=== PATIENT | male | born 1950 | race Two or more races ===

== ENCOUNTER → 2017-01-17 | Outpatient (CLI) | payer BC ==
[~2017-01-17] MED LIST: AMIO400T4 PO; ASPI-621 PO; ATOR40TA PO; CLOP75TA52 PO; DOCU-131 PO; ENAL2.5T32 PO; FURO-93 PO; LORA2TAB PO; METO25TA35 PO/NG; NAPR500T4 PO; OMNIPAQUE 350 MG/ML, 150 ML BOTTLE ONE; OXYC10TA6 PO; PANT40TA5 PO; POTA10TA5 PO; TADA20TA PO; ZOLP10TA5 PO
== END | disposition home or self-care (01) ==
LOC: CFH 12:02
PROVIDERS: ATTEND Physician Assistant Surgical
DX: N28.1 Cyst of kidney, acquired (principal)
CPT/HCPCS: 74178; Q9967

== ENCOUNTER → 2019-10-19 | Outpatient (CLI) | payer MEDICARE ==
[~2019-10-19] MED LIST changes: -AMIO400T4 PO; +AMIO400T5 PO; -ASPI-621 PO; +ASPI81TA45 PO; +NAPR-685 PO; -NAPR500T4 PO; -OMNIPAQUE 350 MG/ML, 150 ML BOTTLE ONE; +REGADENOSON 0.4 MG/5 ML SYRINGE ONE
== END | disposition home or self-care (01) ==
LOC: CFH 07:52
PROVIDERS: ATTEND Internal Medicine Cardiovascular Disease
DX: I48.0 Paroxysmal atrial fibrillation (principal); I10 Essential (primary) hypertension
CPT/HCPCS: 78452; 93017; A9502; J2785